=== PATIENT | female | born 1980 | race African-American/Black ===

== ENCOUNTER → 2020-07-07 | Outpatient (CLI) | payer OTHER ==
--- NOTE | 2020-07-25 11:50 | REP ---
INDICATION: N64.4 MASTODYNIA. Family history breast cancer in mother at age 27, ovarian cancer at age 63 in maternal aunt and breast cancer at age 62 in maternal grandmother. COMPARISON: Mammograms 08/16/2019, 11/12/2007 and 10/01/2005. Interpretation is somewhat delayed awaiting these prior studies. TECHNIQUE: MLO and CC views performed bilaterally, as well as left axillary CC view, with tomosynthesis. Ultrasound of the lateral left breast was also performed the region of pain. FINDINGS: Breast parenchyma is heterogeneously dense, limiting the sensitivity of the mammogram. There is no evidence of mass or architectural distortion. I see no clustered microcalcifications bilaterally. No mammographic abnormality is seen laterally in the left breast, in the region of pain. Real-time sonographic evaluation of left breast performed laterally in the region of pain. Dense breast tissue is noted. There is a 4 mm cyst at 8 o'clock in the left breast. Lymph nodes are seen in the left axillary region which appear morphologically unremarkable, largest lymph nodes have a short axis dimension of 7 mm. The Volpara volumetric breast density pattern is D. IMPRESSION: BIRADS/ACR 2 benign. Dense breast parenchyma limits the sensitivity of the mammogram. No mammographic abnormalities identified. By ultrasound there is a 4 mm cyst in the left breast at 8 o'clock. There are also morphologically normal appearing lymph nodes in the left axillary region. This patient's Tyrer-Cuzick lifetime breast cancer risk assessment score is 29.1%. This mammogram was interpreted with the aid of an FDA-approved computer-aided detection system. The patient states she had a clinical breast exam in June 2020. The patient letter being requested is M2. RECOMMENDATION: Repeat screening mammography recommended 1 year (for women over 40). Given the patient's elevated lifetime risk of breast cancer, recommend bilateral breast MRI in 6 months. <Electronically signed by Moiz Jones > 07/25/20 0007
== END ==
LOC: M WHC 13:25
PROVIDERS: ATTEND Physician Assistant
DX: N64.4 Mastodynia (principal); Z80.3 Family history of malignant neoplasm of breast; N60.02 Solitary cyst of left breast
CPT/HCPCS: 76641; 77066; G0279